=== PATIENT | female | born 1975 | race Caucasian/White ===

== ENCOUNTER 2018-07-04 12:30 | Emergency (ER) | payer MEDICAID ==
[2018-07-04 14:31] LABS: ADD MAN DIFF? NO
[2018-07-04 14:40] LABS: WHITE BLOOD COUNT 4.7 10^3/ul (4.8-10.8)
[2018-07-04 14:40] LABS: BASOPHILS % 0.2 % (0.0-2.0); HEMATOCRIT 41.2 % (37.0-47.0); HEMOGLOBIN 13.2 g/dl (12.0-16.0); LYMPHOCYTES # 1.5 10^3/ul (0.8-2.9); LYMPHOCYTES % 31.7 % (15.0-51.0); MEAN CORPUSCULAR HEMOGLOBIN 28.4 pg (29.0-33.0); MEAN CORPUSCULAR VOLUME 88.8 fl (82.0-101.0); MEAN PLATELET VOLUME 11.1 fl (7.4-10.4); MONOCYTE # 0.3 10^3/ul (0.3-0.9); NEUTROPHIL # 2.9 10^3/ul (1.6-7.5); NEUTROPHILS % 60.9 % (39.0-77.0); PLATELET COUNT 168 10^3/UL (140-415); RED BLOOD COUNT 4.64 10^6/ul (4.20-5.40); RED CELL DISTRIBUTION WIDTH 14.2 % (11.5-14.5)
[2018-07-04 14:46] LABS: ADD UMIC YES; UR ASCORBIC ACID NEGATIVE (NEGATIVE); UR BACTERIA FEW /HPF (NONE SEEN); UR BILIRUBIN (Dip) NEGATIVE (NEGATIVE); UR BLOOD (Dip) 3+ mg/dL (NEGATIVE); UR CLARITY SLIGHTLY CLOUDY (CLEAR); UR COLOR STRAW (YELLOW); UR GLUCOSE (Dip) NEGATIVE (NEGATIVE); UR KETONES (Dip) NEGATIVE (NEGATIVE); UR LEUKOCYTE ESTERASE (Dip) NEGATIVE Leu/ul (NEGATIVE); UR NITRITE (Dip) NEGATIVE (NEGATIVE); UR RBC 0 /HPF (0-5); UR SPECIFIC GRAVITY (Dip) 1.002 (1.003-1.030); UR SQUAMOUS EPITHELIAL CELL FEW /HPF (FEW); UR TOTAL PROTEIN (Dip) NEGATIVE (NEGATIVE); UR UROBILINOGEN (Dip) NEGATIVE (NEGATIVE); UR WBC 1 /HPF (0-5)
[2018-07-04 14:59] LABS: ALANINE AMINOTRANSFERASE 20 IU/L (13-69); ALBUMIN 4.4 g/dl (3.3-4.9); ALBUMIN/GLOBULIN RATIO 1.37; ALKALINE PHOSPHATASE 56 IU/L (42-121); ANION GAP 9 (5-13); ASPARTATE AMINO TRANSFERASE 27 IU/L (15-46); BILIRUBIN,INDIRECT 0.6 mg/dl (0-1.1); BILIRUBIN,TOTAL 0.6 mg/dl (0.2-1.3); BLOOD UREA NITROGEN 9 mg/dl (7-20); CARBON DIOXIDE 24 mmol/L (21-31); CHLORIDE 108 mmol/L (97-110); CREATININE 0.57 mg/dl (0.44-1.00); Estimated GFR > 60 mL/min (>60); GLUCOSE 94 mg/dl (70-220); POTASSIUM 4.5 mmol/L (3.5-5.1); SODIUM 141 mmol/L (135-144); TOTAL PROTEIN 7.6 g/dl (6.1-8.1)
[2018-07-04 15:12] LABS: INR 1.18; PROTIME 15.1 Sec (11.9-14.9); PT RATIO 1.2
[2018-07-04 15:13] LABS: PARTIAL THROMBOPLASTIN TIME 35.8 Sec (23.0-35.0)
== END 2018-07-04 15:40 | disposition home or self-care (01) ==
LOC: FTE 12:30
DX: O20.9 Hemorrhage in early pregnancy, unspecified (principal); Z3A.01 Less than 8 weeks gestation of pregnancy
CPT/HCPCS: 76801; 80053; 81001; 81025; 84702; 85025; 85610; 85730; 86900; 86901; 99284-25

== ENCOUNTER 2018-07-07 13:11 | Emergency (ER) | payer MEDICAID ==
[2018-07-07 14:24] LABS: ADD UMIC YES; UR ASCORBIC ACID NEGATIVE (NEGATIVE); UR BACTERIA FEW /HPF (NONE SEEN); UR BILIRUBIN (Dip) NEGATIVE (NEGATIVE); UR BLOOD (Dip) 3+ mg/dL (NEGATIVE); UR CLARITY SLIGHTLY CLOUDY (CLEAR); UR COLOR STRAW (YELLOW); UR GLUCOSE (Dip) NEGATIVE (NEGATIVE); UR KETONES (Dip) NEGATIVE (NEGATIVE); UR LEUKOCYTE ESTERASE (Dip) NEGATIVE Leu/ul (NEGATIVE); UR NITRITE (Dip) NEGATIVE (NEGATIVE); UR RBC 1 /HPF (0-5); UR SPECIFIC GRAVITY (Dip) 1.006 (1.003-1.030); UR SQUAMOUS EPITHELIAL CELL FEW /HPF (FEW); UR TOTAL PROTEIN (Dip) NEGATIVE (NEGATIVE); UR UROBILINOGEN (Dip) NEGATIVE (NEGATIVE); UR WBC 1 /HPF (0-5)
== END 2018-07-07 15:48 | disposition home or self-care (01) ==
LOC: FTE 15:48
DX: O20.9 Hemorrhage in early pregnancy, unspecified (principal); R10.2 Pelvic and perineal pain; O99.331 Smoking (tobacco) complicating pregnancy, first trimester; F17.210 Nicotine dependence, cigarettes, uncomplicated; Z3A.01 Less than 8 weeks gestation of pregnancy
CPT/HCPCS: 76801; 81001; 84702; 99284-25

== ENCOUNTER 2018-07-11 09:36 | Inpatient (IN) | payer MEDICAID ==
[2018-07-11] MEDS: ACETAMINOPHEN 500 MG TAB PO (10:20)
[2018-07-11 10:46] LABS: ADD MAN DIFF? NO
[2018-07-11 10:49] LABS: WHITE BLOOD COUNT 3.7 10^3/ul (4.8-10.8)
[2018-07-11 10:49] LABS: HEMATOCRIT 39.2 % (37.0-47.0); HEMOGLOBIN 12.7 g/dl (12.0-16.0); LYMPHOCYTES # 1.3 10^3/ul (0.8-2.9); MEAN CORPUSCULAR HEMOGLOBIN 28.4 pg (29.0-33.0); MEAN CORPUSCULAR HGB CONC 32.4 g/dl (32.0-37.0); MEAN CORPUSCULAR VOLUME 87.7 fl (82.0-101.0); MEAN PLATELET VOLUME 11.5 fl (7.4-10.4); MONOCYTE # 0.5 10^3/ul (0.3-0.9); MONOCYTES % 12.8 % (0.0-11.0); NEUTROPHILS % 52.9 % (39.0-77.0); PLATELET COUNT 149 10^3/UL (140-415); RED BLOOD COUNT 4.47 10^6/ul (4.20-5.40); RED CELL DISTRIBUTION WIDTH 14.4 % (11.5-14.5)
[2018-07-11 10:54] LABS: ADD UMIC YES; UR ASCORBIC ACID NEGATIVE (NEGATIVE); UR BACTERIA FEW /HPF (NONE SEEN); UR BILIRUBIN (Dip) NEGATIVE (NEGATIVE); UR BLOOD (Dip) 3+ mg/dL (NEGATIVE); UR CLARITY SLIGHTLY CLOUDY (CLEAR); UR COLOR RED (YELLOW); UR GLUCOSE (Dip) NEGATIVE (NEGATIVE); UR KETONES (Dip) NEGATIVE (NEGATIVE); UR LEUKOCYTE ESTERASE (Dip) NEGATIVE Leu/ul (NEGATIVE); UR MUCUS FEW /HPF (NONE SEEN); UR NITRITE (Dip) NEGATIVE (NEGATIVE); UR RBC 10 /HPF (0-5); UR SPECIFIC GRAVITY (Dip) 1.013 (1.003-1.030); UR SQUAMOUS EPITHELIAL CELL MODERATE /HPF (FEW); UR TOTAL PROTEIN (Dip) NEGATIVE (NEGATIVE); UR UROBILINOGEN (Dip) NEGATIVE (NEGATIVE); UR WBC 2 /HPF (0-5)
[2018-07-11] MEDS: LACTATED RINGER'S 1,000 ML IV (19:40)
[2018-07-11 20:21] LABS: HEMATOCRIT 34.9 % (37.0-47.0); HEMOGLOBIN 11.6 g/dl (12.0-16.0)
[2018-07-11 20:41] LABS: ANION GAP 6 (5-13); BLOOD UREA NITROGEN 9 mg/dl (7-20); CALCIUM 9.3 mg/dl (8.4-10.2); CARBON DIOXIDE 26 mmol/L (21-31); CHLORIDE 107 mmol/L (97-110); CREATININE 0.55 mg/dl (0.44-1.00); Estimated GFR > 60 mL/min (>60); GLUCOSE 82 mg/dl (70-220); POTASSIUM 3.7 mmol/L (3.5-5.1); SODIUM 139 mmol/L (135-144)
[2018-07-11] MEDS: KETOROLAC 30 MG INJ IV (22:50)
[2018-07-12] MEDS ORDERED: PROPOFOL 0 ML (01:28)
[2018-07-12] MEDS ORDERED: FENTAnyl 50 MCG/ML VIAL ×2 (01:29→11:07)
[2018-07-12] MEDS ORDERED: ONDANSETRON 4 MG INJ ×2 (01:29→11:07)
[2018-07-12] MEDS ORDERED: MIDAZOLAM 1 MG/ML 2 ML INJ ×2 (01:29→11:07)
[2018-07-12] MEDS ORDERED: KETOROLAC 30 MG INJ (01:30)
[2018-07-12] MEDS ORDERED: ROCURONIUM 50 MG INJ ×2 (01:34→11:06)
[2018-07-12] MEDS: LACTATED RINGER'S 1,000 ML IV ×3 (06:22→16:20)
[2018-07-12] MEDS ORDERED: NEOSTIGMINE 3 MG/3 ML SYRINGE (11:06)
[2018-07-12] MEDS ORDERED: PROPOFOL 20 ML (11:06)
[2018-07-12] MEDS ORDERED: CEFAZOLIN 1 GM INJ (11:06)
[2018-07-12] MEDS ORDERED: GLYCOPYRROLATE 0.4 MG INJ (11:06)
[2018-07-12] MEDS ORDERED: DEXAMETHASONE 4 MG/ML 5 ML INJ (11:07)
[2018-07-12] MEDS ORDERED: morphine SULFATE/PF (10 MG/10 ML) INJ (11:13)
[2018-07-12] MEDS ORDERED: PHENYLephrine (100 MCG/ML) 10ML SYG (11:45)
[2018-07-12] MEDS ORDERED: LABETALOL HCL 20MG INJ IV (13:30)
[2018-07-12] MEDS ORDERED: MIDAZOLAM 1 MG/ML 2 ML INJ IV (13:30)
[2018-07-12] MEDS ORDERED: HYDROmorphONE 0.5 MG/0.5 ML SYG IV (13:30)
[2018-07-12] MEDS ORDERED: FENTAnyl 50 MCG/ML VIAL IV ×2 (13:30)
[2018-07-12] MEDS ORDERED: NALOXONE (0.4 MG/ML) INJ IV (13:30)
[2018-07-12] MEDS ORDERED: TRIMETHOBENZAMIDE 100 MG/ML VIAL IM (13:30)
[2018-07-12] MEDS ORDERED: HYDROmorphONE 1 MG/5 ML IV SYRINGE IV ×3 (13:30)
[2018-07-12] MEDS ORDERED: ALBUTEROL 0.083% (NEB) 2.5 MG/3 ML AMP HHN (13:30)
[2018-07-12] MEDS ORDERED: hydrALAzine 20 MG INJ IV (13:30)
[2018-07-12] MEDS ORDERED: OXYCODONE/ACETAMINOPHEN (5/325) TAB PO ×2 (13:30)
[2018-07-12] MEDS ORDERED: EPHEDrine SULFATE 50 MG/5 ML SYG IV (13:30)
[2018-07-12] MEDS ORDERED: NALBUPHINE HCL (10 MG/1 ML) INJ IV (13:30)
[2018-07-12] MEDS ORDERED: ZOLPIDEM 5 MG TAB PO (13:30)
[2018-07-12] MEDS ORDERED: DIPHENHYDRAMINE 50 MG INJ IV ×2 (13:30)
[2018-07-12] MEDS ORDERED: IPRATROPIUM (NEB) 0.5 MG/2.5 ML AMP HHN (13:30)
[2018-07-12] MEDS: ONDANSETRON 4 MG INJ IV ×2 (14:04→15:22)
[2018-07-12] MEDS: MEPERIDINE 25 MG INJ IV (14:05)
[2018-07-12] MEDS: FENTAnyl 50 MCG/ML VIAL IV (14:06)
[2018-07-12] MEDS: HYDROmorphONE 0.5 MG/0.5 ML SYG IV (15:22)
[2018-07-12] MEDS: METOCLOPRAMIDE 10 MG INJ IV (16:51)
[2018-07-12] MEDS: KETOROLAC 30 MG INJ IV (16:52)
[2018-07-13] MEDS: KETOROLAC 30 MG INJ IV ×2 (01:15→07:58)
[2018-07-13] MEDS: LACTATED RINGER'S 1,000 ML IV ×4 (01:15→20:53)
[2018-07-13 11:33] LABS: ADD MAN DIFF? NO
[2018-07-13 11:43] LABS: WHITE BLOOD COUNT 6.5 10^3/ul (4.8-10.8)
[2018-07-13 11:43] LABS: HEMATOCRIT 31.9 % (37.0-47.0); HEMOGLOBIN 10.7 g/dl (12.0-16.0); LYMPHOCYTES # 1.5 10^3/ul (0.8-2.9); LYMPHOCYTES % 22.9 % (15.0-51.0); MEAN CORPUSCULAR HEMOGLOBIN 28.7 pg (29.0-33.0); MEAN CORPUSCULAR HGB CONC 33.5 g/dl (32.0-37.0); MEAN CORPUSCULAR VOLUME 85.5 fl (82.0-101.0); MEAN PLATELET VOLUME 11.6 fl (7.4-10.4); MONOCYTE # 0.6 10^3/ul (0.3-0.9); MONOCYTES % 8.6 % (0.0-11.0); NEUTROPHIL # 4.5 10^3/ul (1.6-7.5); NEUTROPHILS % 68.3 % (39.0-77.0); PLATELET COUNT 122 10^3/UL (140-415); RED BLOOD COUNT 3.73 10^6/ul (4.20-5.40); RED CELL DISTRIBUTION WIDTH 14.3 % (11.5-14.5)
[2018-07-13 11:54] LABS: POSITIVE DIFF @See below
[2018-07-13] MEDS: OXYCODONE/ACETAMINOPHEN (5/325) TAB PO ×2 (14:24→20:53)
[2018-07-13] MEDS ORDERED: OXYCODONE/ACETAMINOPHEN (5/325) TAB PO (14:30)
[2018-07-13] MEDS: IBUPROFEN 600 MG TAB PO (20:53)
[2018-07-14] MEDS: OXYCODONE/ACETAMINOPHEN (5/325) TAB PO ×3 (05:09→17:30)
[2018-07-14] MEDS: LACTATED RINGER'S 1,000 ML IV (06:16)
[2018-07-14] MEDS: CEFAZOLIN 2 GM/50 ML (PMX) 50 ML IVPB (12:06)
[2018-07-14] MEDS: IBUPROFEN 600 MG TAB PO (15:15)
== END 2018-07-14 18:15 | disposition home or self-care (01) | DRG 817 ==
LOC: PP2 18:51 → FTE 09:36
PROVIDERS: Obstetrics & Gynecology Obstetrics
PROC: 10T20ZZ Resection of Products of Conception, Ectopic, Open Approach (ICD-10-PCS; principal; 2018-07-12 10:30)
PROC: 0UT50ZZ Resection of Right Fallopian Tube, Open Approach (ICD-10-PCS; 2018-07-12 10:30)
PROC: 0UB00ZZ Excision of Right Ovary, Open Approach (ICD-10-PCS; 2018-07-12 10:30)
PROC: 0UDB7ZZ Extraction of Endometrium, Via Natural or Artificial Opening (ICD-10-PCS; 2018-07-12 10:30)
PROC: 0UBC7ZX Excision of Cervix, Via Natural or Artificial Opening, Diagnostic (ICD-10-PCS; 2018-07-12 10:30)
DX: O00.101 Right tubal pregnancy without intrauterine pregnancy (principal); K66.1 Hemoperitoneum; O34.81 Maternal care for other abnormalities of pelvic organs, first trimester; N83.201 Unspecified ovarian cyst, right side; Z3A.01 Less than 8 weeks gestation of pregnancy
CPT/HCPCS: 76801; 76817; 80048; 81001; 84702; 85014; 85018; 85025; 86850; 86900; 86901; 87086; 88305; 99285-25